=== PATIENT | female | born 1970 | race Caucasian/White ===

== ENCOUNTER 2019-07-07 21:17 | Emergency (ER) | payer MEDICAID, MEDICARE ==
[2019-07-07 21:29] VITALS: BP 135/92; PULSE 74
[2019-07-07] MEDS ORDERED: Promethazine 25 MG/ML SDV IM ONE (21:38)
[2019-07-07] MEDS ORDERED: Butorphanol 2 MG/ML SDV IM ONE (21:38)
--- NOTE | 2019-07-07 21:44 | EDM.PDOC ---
ED HPI GENERAL MEDICAL PROBLEM - General Chief Complaint: Headache Stated Complaint: MIGRAINE Time Seen by Provider: 07/07/19 21:39 Source of Information: Reports: Patient History Limitations: Reports: No Limitations - History of Present Illness INITIAL COMMENTS - FREE TEXT/NARRATIVE: onset 2 days ago. 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: Reports: Acetaminophen, NSAIDS Posterior Headache Pain Score (Numeric/FACES): 10 - Related Data Allergies Allergy/AdvReac Type Severity Reaction Status Date / Time Cephalosporins Allergy Rash Verified 07/07/19 22:48 ciprofloxacin Allergy Hives Verified 07/07/19 22:48 iodine Allergy Abdominal Verified 07/07/19 22:48 Cramps latex Allergy Rash Verified 07/07/19 22:48 levofloxacin [From Levaquin] Allergy Hives Verified 07/07/19 22:48 Penicillins Allergy Swollen Verified 07/07/19 22:48 Tongue propoxyphene HCl Allergy Rash Verified 07/07/19 22:48 [From Darvon] Sulfa (Sulfonamide Allergy Rash Verified 07/07/19 22:48 Antibiotics) vancomycin Allergy Nausea and Verified 07/07/19 22:48 Vomiting Home Meds: Home Meds Zolpidem [Ambien] 1 tab PO BEDTIME 03/30/14 [History] Acetaminophen 975 mg PO Q6H PRN 03/08/15 [History] Esomeprazole Magnesium [Nexium] 40 mg PO DAILY 03/08/15 [History] Ibuprofen 600 mg PO ASDIRECTED PRN 07/02/16 [History] atorvaSTATin [Lipitor] 20 mg PO BEDTIME 02/11/18 [History] Baclofen 40 mg PO BID 05/30/18 [History] SitaGLIPtin [Januvia] 25 mg PO DAILY 05/30/18 [History] metFORMIN HCl [Metformin HCl] 1,000 mg PO BID 05/30/18 [History] Past Medical History HEENT History: Reports: Impaired Vision, Otitis Media Cardiovascular History: Reports: None Respiratory History: Reports: Bronchitis, Recurrent, Pneumonia, Recurrent Other Respiratory History: REACTIVE AIRWAY Other Gastrointestinal History: COLON POLYP Genitourinary History: Reports: None 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 pOSSIBLY HAD AN ECTOPIC Other Musculoskeletal History: CERVICAL NECK PAIN WITH EVIDENCE OF DISC DISEASE Neurological History: Reports: None, Migraines Psychiatric History: Reports: None Endocrine/Metabolic History: Reports: Diabetes, Type II Hematologic History: Reports: None Immunologic History: Reports: None Oncologic (Cancer) History: Reports: Ovarian Dermatologic History: Reports: None - Infectious Disease History Infectious Disease History: Reports: Chicken Pox, Measles, Mumps - Past Surgical History Head Surgeries/Procedures: Reports: None GI Surgical History: Reports: Appendectomy Female Surgical History: Reports: Hysterectomy Social & Family History - Family History Family Medical History: Noncontributory - Caffeine Use Caffeine Use: Reports: Soda - Living Situation & Occupation Occupation: Employed ED ROS GENERAL - Review of Systems Review Of Systems: Comprehensive ROS is negative, except as noted in HPI. - Physical Exam Exam: See Below Exam Limited By: No Limitations General Appearance: Alert, WD/WN, Mild Distress, Moderate Distress, Other ( tearful) Eye Exam: Bilateral Eye: PERRL (pupils ER @ 4mm) Ears: Hearing Grossly Normal Throat/Mouth: Normal Voice, No Airway Compromise Head Exam: Atraumatic Neck: Non-Tender, Full Range of Motion Respiratory/Chest: No Respiratory Distress Cardiovascular: Regular Rate, Rhythm GI/Abdominal: Soft, Non-Tender Neuro Exam (Abbreviated): Alert, Oriented, Normal Cognition, Normal Gait, No Motor/Sensory Deficits Psychiatric: Tearful Skin Exam: Warm, Dry, Normal Color Course - Vital Signs Last Recorded V/S: Last Vital Signs Temp 37.1 C 07/07/19 21:27 Pulse 74 07/07/19 21:27 Resp 18 07/07/19 21:27 BP 135/92 H 07/07/19 21:27 Pulse Ox 96 07/07/19 21:27 - Orders/Labs/Meds Meds: Medications Discontinued Medications Generic Name Dose Route Start Last Admin Trade Name Stephany PRN Reason Stop Dose Admin Butorphanol Tartrate 2 mg 07/07/19 21:38 07/07/19 21:50 Stadol IM 07/07/19 21:39 2 mg ONETIME ONE Administration Diphenhydramine HCl 25 mg 07/07/19 22:37 07/07/19 22:56 Benadryl IVPUSH 07/07/19 22:38 25 mg ONETIME ONE Administration Sodium Chloride 1,000 mls @ 999 mls/hr 07/07/19 22:37 07/07/19 22:53 Normal Saline IV 07/07/19 23:37 999 mls/hr .BOLUS ONE Administration Ketorolac Tromethamine 30 mg 07/07/19 22:37 07/07/19 22:57 Toradol IVPUSH 07/07/19 22:38 30 mg ONETIME ONE Administration Ondansetron HCl 4 mg 07/07/19 22:37 07/07/19 22:54 Zofran IV 07/07/19 22:38 4 mg ONETIME ONE Administration Promethazine HCl 25 mg 07/07/19 21:38 07/07/19 21:48 Phenergan IM 07/07/19 21:39 25 mg ONETIME ONE Administration - Re-Assessments/Exams Free Text/Narrative Re-Assessment/Exam: 07/07/19 22:38 re-exam; s/p IM stadol + phenergan = '0' Departure - Departure Time of Disposition: 21:35 Disposition: Home, Self-Care 01 Condition: Good Clinical Impression: Migraine - Discharge Information Referrals: Vishal Woodward SIMPLEX OPERATOR [Primary Care Provider] - Forms: ED Department Discharge Additional Instructions: 1) rest 2) avoid bright lights and loud noise 3) liquid diet Sepsis Event Note - Evaluation Sepsis Screening Result: No Definite Risk - Focused Exam Vital Signs: Vital Signs Temp Pulse Resp BP Pulse Ox 07/07/19 21:27 37.1 C 74 18 135/92 H 96 Date Exam was Performed: 07/07/19 Time Exam was Performed: 23:42
[2019-07-07] MEDS ORDERED: Sodium Chloride 0.9% 1,000 ML IV ONE (22:37)
[2019-07-07] MEDS ORDERED: Ketorolac 30 MG/ML SDV IVPUSH ONE (22:37)
[2019-07-07] MEDS ORDERED: Ondansetron 4 MG/2 ML SDV IV ONE (22:37)
[2019-07-07] MEDS ORDERED: diphenhydrAMINE 50 MG/ML SDV IVPUSH ONE (22:37)
== END 2019-07-07 23:38 | disposition home or self-care (01) ==
LOC: DL.ED 21:17
DX: G43.909 Migraine, unspecified, not intractable, without status migrainosus (principal); J45.909 Unspecified asthma, uncomplicated; E11.9 Type 2 diabetes mellitus without complications; Z88.1 Allergy status to other antibiotic agents; Z91.040 Latex allergy status; Z88.0 Allergy status to penicillin; Z88.8 Allergy status to other drugs, medicaments and biological substances; Z88.2 Allergy status to sulfonamides; Z79.84 Long term (current) use of oral hypoglycemic drugs
CPT/HCPCS: 96361; 96372; 96374; 96375; 99284; J0595; J1200; J1885; J2405; J2550; J7030

== ENCOUNTER 2020-02-28 15:49 | Emergency (ER) | payer OTHER, MEDICARE ==
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
[2020-02-28] MEDS ORDERED: Ketorolac 30 MG/ML SDV IM ONE (17:39)
[2020-02-28] MEDS ORDERED: Cyclobenzaprine 10 MG Tab ONE (17:54)
[2020-02-28 18:08] VITALS: BP 158/78; PULSE 88
== END 2020-02-28 18:11 | disposition home or self-care (01) ==
LOC: DL.ED 15:49
DX: S16.1XXA Strain of muscle, fascia and tendon at neck level, initial encounter (principal); S39.012A Strain of muscle, fascia and tendon of lower back, initial encounter; E11.9 Type 2 diabetes mellitus without complications; Z88.1 Allergy status to other antibiotic agents; Z91.040 Latex allergy status; Z88.8 Allergy status to other drugs, medicaments and biological substances; Z88.0 Allergy status to penicillin; Z88.2 Allergy status to sulfonamides; V89.2XXA Person injured in unspecified motor-vehicle accident, traffic, initial encounter
CPT/HCPCS: 72040; 72070; 72100; 72170; 96372; 99283; 99284-25; J1885

== ENCOUNTER 2022-05-25 16:28 | Emergency (ER) | payer MEDICARE ==
[2022-05-25] MEDS ORDERED: Sodium Chloride 0.9% 10 ML Syringe FLUSH PRN (17:07)
[2022-05-25] MEDS ORDERED: HYDROmorphone 1 MG/ML Syringe IVPUSH ONE (17:08)
[2022-05-25 17:11] VITALS: BP 140/91; PULSE 77
[2022-05-25 17:41] LABS: ANION GAP 13.4 mEq/L (7-13)
[2022-05-25] MEDS ORDERED: Insulin Regular, Human 100 Units/ML 3 ML Vial IV ONE (17:46)
[2022-05-25] MEDS ORDERED: Glucagon,Human Recombinant 1 MG Vial IM PRN (17:55)
[2022-05-25] MEDS ORDERED: 50% Dextrose in Water 50 ML Syringe IVPUSH PRN (17:55)
[2022-05-25] MEDS ORDERED: Sodium Chloride 0.9% 1,000 ML IV ONE (18:09)
== END 2022-05-25 19:53 | disposition home or self-care (01) ==
LOC: DL.ED 16:28
DX: S22.41XA Multiple fractures of ribs, right side, initial encounter for closed fracture (principal); E11.65 Type 2 diabetes mellitus with hyperglycemia; Z91.040 Latex allergy status; Z88.1 Allergy status to other antibiotic agents; Z91.041 Radiographic dye allergy status; Z88.8 Allergy status to other drugs, medicaments and biological substances; Z88.2 Allergy status to sulfonamides; Z79.899 Other long term (current) drug therapy; W55.22XA Struck by cow, initial encounter
CPT/HCPCS: 36415; 80053; 82947; 85025; 96361; 96374; 99283; J1170; J1815; J3490; J7030

== ENCOUNTER 2022-06-07 14:02 | Emergency (ER) | payer MEDICARE ==
[2022-06-07 14:27] VITALS: BP 118/75; PULSE 71
== END 2022-06-07 14:35 | disposition home or self-care (01) ==
LOC: DL.ED 14:02
DX: M79.2 Neuralgia and neuritis, unspecified (principal); E11.9 Type 2 diabetes mellitus without complications; Z88.8 Allergy status to other drugs, medicaments and biological substances; Z88.0 Allergy status to penicillin; Z88.2 Allergy status to sulfonamides; Z88.1 Allergy status to other antibiotic agents; Z91.040 Latex allergy status; Z91.041 Radiographic dye allergy status
CPT/HCPCS: 99283